=== PATIENT | male | born 1980 | race Caucasian/White ===

== ENCOUNTER 2017-01-12 19:56 | Emergency (ER) | payer SELFPAY ==
[~2017-01-12] VITALS: Ht 195.6 cm; Wt 100.4 kg
[~2017-01-12 19:56] MED LIST: BENADRYL 50MG C50 MG PO; DOXYCYCL HYC100 MG PO; IBUPROFEN600 MG PO; MEDDOSEPAK PO; MULTI VIT PO; MUPIROCIN2 % EX; ULTRAM50 M1 PO
[2017-01-12 21:07] LABS: URINE BILIRUBIN - DIPSTICK NEGATIVE (NEGATIVE); URINE BLOOD DIPSTICK NEGATIVE (NEGATIVE); URINE CLARITY CLEAR; URINE COLOR YELLOW; URINE GLUCOSE - DIPSTICK NEGATIVE (NEGATIVE); URINE KETONE NEGATIVE (NEGATIVE); URINE LEUK ESTERASE NEGATIVE (NEGATIVE); URINE NITRITE - DIPSTICK NEGATIVE (Negative); URINE PROTEIN - DIPSTICK NEGATIVE (NEG-TRACE); URINE UROBILINOGEN - DIPSTICK 0.2 E.U./dL (0.2)
[2017-01-12] MEDS ORDERED: PERCOCET 5/325M1 TAB PO (23:15)
[2017-01-12] MEDS ORDERED: ORPHENADRINE100 MG PO (23:15)
[2017-01-12 23:32] VITALS: BP 130/66
== END 2017-01-12 23:30 | disposition home or self-care (01) | DRG 552 ==
LOC: ED 19:56
PROVIDERS: Emergency Medicine
DX: M54.9 Dorsalgia, unspecified (principal); F17.210 Nicotine dependence, cigarettes, uncomplicated

== ENCOUNTER 2020-09-02 | Emergency (ER) | payer SELFPAY ==
[~2020-09-02] MED LIST changes: +ORPHENADRINE100 MG PO; +PERCOCET 5/325M1 TAB PO
[2020-09-02] MEDS ORDERED: IBUPROFEN600 MG PO (01:09)
== END 2020-09-02 02:04 | disposition home or self-care (01) | DRG 554 ==
DX: M17.12 Unilateral primary osteoarthritis, left knee (principal); F17.210 Nicotine dependence, cigarettes, uncomplicated
CPT/HCPCS: L1830

== ENCOUNTER 2021-01-20 15:01 | Emergency (ER) | payer SELFPAY ==
[~2021-01-20] VITALS: Ht 195.6 cm; Wt 100.0 kg
[2021-01-20] MEDS ORDERED: MEDDOSEPAK PO (17:37)
[2021-01-20] MEDS ORDERED: CYCLOBENZAPRINE10 MG PO (17:37)
[2021-01-20 17:52] VITALS: BP 128/79
== END 2021-01-20 17:52 | disposition home or self-care (01) | DRG 552 ==
LOC: ED 15:01
DX: M54.31 Sciatica, right side (principal); F17.210 Nicotine dependence, cigarettes, uncomplicated

== ENCOUNTER 2021-01-23 10:09 | Emergency (ER) | payer SELFPAY ==
[~2021-01-23 10:09] MED LIST changes: +CYCLOBENZAPRINE10 MG PO
== END 2021-01-23 12:42 | disposition left against medical advice (07) | DRG 951 ==
LOC: ED 10:09 → LWOBS 12:41
DX: Z53.21 Procedure and treatment not carried out due to patient leaving prior to being seen by health care provider (principal)

== ENCOUNTER 2021-04-24 15:05 | Emergency (ER) | payer SELFPAY ==
[~2021-04-24] VITALS: Ht 195.6 cm; Wt 110.0 kg
[2021-04-24 16:10] VITALS: BP 148/82
== END 2021-04-24 17:13 | disposition left against medical advice (07) | DRG 951 ==
LOC: ED 15:05 → LWOBS 17:12
DX: Z53.21 Procedure and treatment not carried out due to patient leaving prior to being seen by health care provider (principal)

== ENCOUNTER 2021-04-25 09:17 | Emergency (ER) | payer SELFPAY ==
[~2021-04-25] VITALS: Ht 195.6 cm; Wt 70.0 kg
[2021-04-25 12:13] VITALS: BP 139/86
== END 2021-04-25 12:17 | disposition left against medical advice (07) | DRG 948 ==
LOC: ED 09:17
DX: R53.83 Other fatigue (principal); J98.4 Other disorders of lung; F17.210 Nicotine dependence, cigarettes, uncomplicated; Z91.19 Patient's noncompliance with other medical treatment and regimen; Z20.822 Contact with and (suspected) exposure to COVID-19